=== PATIENT | female | born 1995 | race Two or more races ===

== ENCOUNTER 2021-04-07 20:36 | Emergency (ER) | payer MEDICAID ==
[~2021-04-07] VITALS: Ht 167.6 cm; Wt 129.3 kg
[2021-04-07 20:36] VITALS: BP 138/87
== END 2021-04-07 21:18 | disposition home or self-care (01) ==
LOC: ER 20:36
DX: S01.511A Laceration without foreign body of lip, initial encounter (principal); Y04.1XXA Assault by human bite, initial encounter; Y93.89 Activity, other specified; Y92.89 Other specified places as the place of occurrence of the external cause; Y99.8 Other external cause status